=== PATIENT | male | born 1935 | race Caucasian/White ===

== ENCOUNTER → 2016-11-22 | Outpatient (CLI) | payer MEDICARE ==
[~2016-11-22] MED LIST: ADVAIR 2501 DISK W/D PO; ALBUTEROL17 GM INH; ARTHRITIS TYLENOL PO; BISOPROLOL/HCTZ1 TA3 PO; CARDIZEM CD PO; PROBENECID/COLC1 TAB PO; [UNRECOGNIZED DRUG - REMARK] SUBQ
--- NOTE | ~2016-11-22 | CT71 ---
[facility] A Service of [facility] & [facility] RADIOLOGY TEXT RESULTS PATIENT: AMBROSE DILLON LOCATION: SNIV : 37 UNIT #: [id number] AGE: [address]: Margarito Andino MD SEX: M ORDER DR: [id number] [place] [id number] O MR#: [id number] Acc #: [id number] NAME: AMBROSE DILLON : 1935 SEX: M STUDY DATE/TIME: 11/22/2016 15:20 UNIT: SNIV ROOM: STUDY DESCRIPTION: CT Head Wo Contrast Attending Physician: Margarito Andino Jr., M.D. Referring Physician: Margarito Andino Jr., M.D. Ordering Physician: Margarito Andino Jr., M.D. Primary Care Physician: Margarito Andino Jr., M.D. MEDICAL IMAGING REPORT This report is preliminary unless electronic signature is present. EXAM CT of the head without contrast 11/22/2016 INDICATIONS Headache and dizziness for a few weeks. TECHNIQUE Axial CT images were obtained from vertex of the skull through skull base. No intravenous contrast was administered. This CT exam was performed with one or more of the following radiation dose reduction techniques: automatic exposure control, adjustment of mA and/or kV according to patient size, and iterative reconstruction. FINDINGS No acute intracranial hemorrhage is identified. This patient does have some cerebral atrophy with compensatory ventricular dilatation in keeping with the age of 81. 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 There is no midline shift or mass effect. This patient's basilar artery appears very prominent in size although I do not see focal aneurysmal dilatation. This appears to be just generalized arteriomegaly but would be better assessed with dedicated CT angiography of the head and neck. There is atherosclerotic involvement of the cavernous carotid arteries. There is mucosal thickening identified within the left maxillary sinus as well as within the ethmoid sinuses with near complete opacification of the right sphenoid sinus. IMPRESSION 1. No acute intracranial hemorrhage identified. Specifically there is no evidence of acute hemorrhage, mass lesion or acute infarct. 2. I do think the patient's basilar artery appears prominent in size. This may simply reflect some generalized arteriomegaly as it appears STS. [facility] A Service of [facility] RADIOLOGY TEXT RESULTS PATIENT: AMBROSE DILLON LOCATION: SNIV : 37 UNIT #: [id number] AGE: [address]: Margarito Andino MD SEX: M ORDER DR: to be a diffuse process, however it would be better evaluated with dedicated CT angiography of the head and neck. 3. Cerebral atrophy in keeping with the patient's age of 81. 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 4. Sinus inflammatory changes as noted above. Dictated by... Ree Connolly M.D. THIS IS AN ELECTRONICALLY VERIFIED REPORT Ree Connolly M.D. at 11/23/2016 9:08 AM MICHAEL/kristine TD: 11/22/2016 18:35 JOB #: [id number] MEDICAL IMAGING REPORT Page 1 of 1
--- NOTE | ~2016-11-22 | US37 ---
[facility] A Service of [facility] & [facility] RADIOLOGY TEXT RESULTS PATIENT: AMBROSE DILLON LOCATION: SNIV : 37 UNIT #: [id number] AGE: [address]: Margarito Andino MD SEX: M ORDER DR: [id number] [address] [address] [id number] O MR#: [id number] Acc #: [id number] NAME: AMBROSE DILLON : 1935 SEX: M STUDY DATE/TIME: 11/22/2016 14:13 UNIT: SNIV ROOM: STUDY DESCRIPTION: US Carotid W/Doppler Bilateral Attending Physician: Margarito Andino Jr., M.D. Referring Physician: Margarito Andino Jr., M.D. Ordering Physician: Margarito Andino Jr., M.D. Primary Care Physician: Margarito Andino Jr., M.D. MEDICAL IMAGING REPORT This report is preliminary unless electronic signature is present. EXAM Bilateral carotid duplex. HISTORY TIA. FINDINGS Duplex imaging of the carotid arteries was performed. The right common carotid artery is patent. Mild plaque is seen in the right carotid bifurcation and in the proximal internal carotid artery. Velocity in the right common carotid is 86, internal is 78 proximally and 95 midportion and 103 distally. External is 96 cm/sec. Right ICA/CCA ratio is 1.2. On the left side, common carotid artery is patent. Plaque seen in the left carotid bulb which is mild. Velocity in the left common carotid is 84, internal is 66 and external is 111 cm/sec. Left ICA/CCA ratio is 1.0. Antegrade flow is seen in the right and left vertebral arteries. IMPRESSION Only mild plaque is seen in the internal carotid arteries bilaterally. No hemodynamically significant stenosis is seen. Antegrade flow is seen in the right and left vertebral arteries. Dictated by... Rashawn Davey M.D. THIS IS AN ELECTRONICALLY VERIFIED REPORT Rashawn Davey M.D. at 11/29/2016 8:36 AM /raheel STS. [facility] A Service of [facility] & [facility] RADIOLOGY TEXT RESULTS PATIENT: AMBROSE DILLON LOCATION: SNIV : 37 UNIT #: [id number] AGE: [address]: Margarito Andino MD SEX: M ORDER DR: TD: 11/22/2016 22:37 JOB #: [id number] MEDICAL IMAGING REPORT Page 1 of 1
== END | disposition home or self-care (01) ==
LOC: SNIV 13:54
DX: G45.9 Transient cerebral ischemic attack, unspecified (principal); G31.9 Degenerative disease of nervous system, unspecified; I73.9 Peripheral vascular disease, unspecified; J34.89 Other specified disorders of nose and nasal sinuses; I65.23 Occlusion and stenosis of bilateral carotid arteries
CPT/HCPCS: 70450; 93880

== ENCOUNTER → 2016-11-25 | Outpatient (CLI) | payer MEDICARE ==
--- NOTE | ~2016-11-25 | CT17 ---
[facility] A Service of [facility] RADIOLOGY TEXT RESULTS PATIENT: AMBROSE DILLON LOCATION: [facility] : 37 UNIT #: [id number] AGE: [address]: Margarito Andino MD SEX: M ORDER DR: [id number] [place] [id number] O MR#: [id number] Acc #: [id number] NAME: AMBROSE DILLON : 1935 SEX: M STUDY DATE/TIME: 11/25/2016 11:33 UNIT: [facility] ROOM: STUDY DESCRIPTION: CT Angio Head Attending Physician: Margarito Andino Jr., M.D. Referring Physician: Margarito Andino Jr., M.D. Ordering Physician: Margarito Andino Jr., M.D. Primary Care Physician: Margarito Andino Jr., M.D. MEDICAL IMAGING REPORT This report is preliminary unless electronic signature is present. EXAM CT angiogram of the head and neck HISTORY Light-headedness for a few weeks. Head CT on 11/22/2016 showed an enlarged basilar artery and the CT angiogram of the head and neck has been performed for further characterization. TECHNIQUE CT angiography of the head and neck vessels performed during the intravenous administration of 80 cc of Isovue-370 with imaging acquired in the axial plane followed by multiple reconstructed and reformatted images for the purpose of 3-D CT angiography head and neck vessels. This CT exam was performed with one or more of the following radiation dose reduction techniques: automatic exposure control, adjustment of mA and/or kV according to patient size, and iterative reconstruction. COMPARISON STUDIES Comparison is made to the earlier head CT. There is also a carotid Doppler ultrasound performed on 11/22/2016 for comparison as well. FINDINGS CT ANGIOGRAM NECK: There is some mild vascular calcification of the arch. There is mild calcification at the origin of the left subclavian artery but there does not appear to be hemodynamically significant narrowing of the great vessel origins. Some vascular calcifications noted at the origin of the right subclavian, also. Assessment of the right carotid system shows mild, mostly noncalcified plaque at the right carotid bifurcation. By NASCET criteria, estimate 0% diameter stenosis. No hemodynamically significant stenosis suspected in STS. [facility] A Service of [facility] & [facility] RADIOLOGY TEXT RESULTS PATIENT: AMBROSE DILLON LOCATION: [facility] : 37 UNIT #: [id number] AGE: [address]: Margarito Andino MD SEX: M ORDER DR: the right carotid siphon. Assessment of the left carotid system shows mild noncalcified plaque at the bifurcation and by NASCET criteria, there is 0% diameter stenosis. No significant narrowing is appreciated at the left carotid siphon. Assessment of the right vertebral artery shows calcified plaque at the origin of the vessel. Again, this appears to result in stenosis. This is probably mild. On the left side, left vertebral artery patent with mild calcified plaque at the origin and probably mild stenosis. Vertebrals are codominant and both supply the basilar. Evaluation of the intracranial circulation shows no intracranial vascular cutoff. There is small anterior communicator present. Only mild ectasia of basilar artery noted, consistent with appearance on the earlier head CT. The vessel is most prominent proximally where the 2 vertebral arteries join. No saccular aneurysm is suspected. Minimal calcified plaque in the proximal intracranial right vertebral artery. No central stenosis is suspected. The tiny left posterior communicator. 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 This is noted on the earlier noncontrast head CT. The patient has had cataract surgery bilaterally. There are degenerative changes in the cervical spine. There is some dental disease noted with evidence of caries and correlation with a dental examination would be recommended. There is partial opacification of the right sphenoid sinus with some retained secretions. IMPRESSION 1. By NASCET criteria, no hemodynamically significant stenosis of either carotid bifurcation. 0% stenosis estimated. 2. Both vertebral arteries are patent and fairly codominant. Probably mild narrowing at the origin of each of the vertebral arteries. 3. There is mild ectasia of the basilar but no focal intracranial saccular aneurysm is suspected. There is some limitation of CT angiography for evaluation for aneurysm at the level of the skull base because of the adjacent bones. No focal central stenosis is suspected. There is a small anterior communicator present. 4. Partly re-demonstrated is probable white matter disease due to small vessel disease noted on the previous noncontrast head CT. Dictated by... Mary Johnson M.D. THIS IS AN ELECTRONICALLY VERIFIED REPORT Mary Johnson M.D. at 11/26/2016 8:06 AM [facility] A Service of [facility] RADIOLOGY TEXT RESULTS PATIENT: AMBROSE DILLON LOCATION: [facility] : 37 UNIT #: [id number] AGE: [address]: Margarito Andino MD SEX: M ORDER DR: JENNY/rito TD: 11/25/2016 19:24 JOB #: [id number] MEDICAL IMAGING REPORT Page 1 of 1
[2016-11-25 09:55] LABS: POC - CREATININE 1.5 mg/dL (0.64-1.27)
== END | disposition home or self-care (01) ==
LOC: SRAD 09:27
PROVIDERS: Family Medicine
DX: I77.3 Arterial fibromuscular dysplasia (principal); R90.82 White matter disease, unspecified; I77.89 Other specified disorders of arteries and arterioles
CPT/HCPCS: 70496; 70498; 82565; Q9967

== ENCOUNTER 2017-02-07 06:29 | Emergency (ER) | payer MEDICARE | END 2017-02-07 07:33 | disposition home or self-care (01) | LOC: SED 06:29 | DX: L50.0 Allergic urticaria (principal); I10 Essential (primary) hypertension; E05.90 Thyrotoxicosis, unspecified without thyrotoxic crisis or storm; Z88.6 Allergy status to analgesic agent | CPT/HCPCS: 96372; 99283; J1100 ==